=== PATIENT | female | born 1940 | race Caucasian/White ===

== ENCOUNTER 2020-11-03 08:38 | Inpatient (IN) ==
--- NOTE | 2020-11-03 09:06 | ERNOTE ---
Medical Problem HPI - Narrative Date of Service: 11/03/20 - General Chief Complaint: General Assessment Time Seen by Provider: 11/03/20 08:48 Source: patient, EMS, halfway records Exam Limitations: no limitations - Immun/Allergies/Home Medications Immunizations: IMMUNIZATION HX Immunizations Up to Date Yes Immunizations Comment covid vaccination 10/14/20 History of Influenza Vaccine Yes Hx Pneumococcal Vaccination Yes Allergies/Adverse Reactions: Allergies No Known Drug Allergies Allergy (Verified 11/03/20 08:52) venom-wasp Adverse Reaction (Unknown, Verified 11/03/20 08:52) Swelling (Other) Home Medications: HOME MEDICATIONS Carbamazepine [Carbatrol] 200 mg PO TID #0 10/21/12 [Last Taken Unknown] aspirin 81 mg tablet,delayed release 81 mg PO DAILY 05/09/18 [Last Taken Unknown] benazepril 20 mg tablet 20 mg PO BID 05/09/18 [Last Taken Unknown] glipizide 5 mg tablet, extended release 24 hr 2.5 mg PO DAILY tab 05/09/18 [L ast Taken Unknown] levothyroxine 112 mcg capsule 112 mcg PO DAILY 05/09/18 [Last Taken Unknown] acetaminophen 325 mg tablet 650 mg PO Q4H PRN 05/18/18 [Last Taken Unknown] furosemide 40 mg tablet 40 mg PO DAILY 05/18/18 [Last Taken Unknown] menthol 4 % topical gel 4 % TP QID PRN ml 07/18/18 [Last Taken Unknown] ferrous sulfate 325 mg (65 mg iron) tablet 325 mg PO DAILY tab 11/18/18 [Last Taken Unknown] ciprofloxacin HCl 250 mg tablet 250 mg PO BID #20 tab 11/01/20 [Last Taken Unknown] - History of Present History Narrative: Patient sent from [facility] dementia unit, assisted living for confusion, shortness of breath. EMS reports that she was requiring 3 L by nasal cannula to keep her oxygen saturation up. She is afebrile. She has no complaints here. Lower extremity swelling is noted. She is taken down on O2 to room air and desats quickly to 88%, maintains oxygen saturation at 94% on 2 L upon arriving to the ER. She does answer questions appropriately. She is alert to person, place and time except year. Review of Systems - Review of Systems Constitutional: Present: no symptoms reported Respiratory: Present: no symptoms reported Cardiology: Present: no symptoms reported Gastrointestinal/Abdominal: Present: no symptoms reported Medical History (Last Reviewed 11/03/20 @ 09:03 by Angela Payne MD) Alzheimer's disease with late onset Cataract Cervicalgia Depression Onset Date: Unknown Diabetes mellitus type 2, noninsulin dependent Onset Date: Unknown GERD (gastroesophageal reflux disease) Onset Date: Unknown Hyperlipidemia Onset Date: Unknown Hypertension Onset Date: Unknown Hypothyroidism (acquired) Onset Date: Unknown Osteoporosis Onset Date: Unknown Venous insufficiency Onset Date: ~2012 Family history of brain aneurysm Onset Date: Unknown Trigeminal neuralgia Onset Date: ~2012 Surgical History: Surgical History (Last Reviewed 11/03/20 @ 09:03 by Angela Payne MD) Esophageal dilatation Onset Date: ~2007 History of appendectomy Onset Date: Unknown History of cataract surgery Onset Date: Unknown bilateral History of cholecystectomy Onset Date: ~1967 History of colonoscopy Onset Date: ~2005 Dr Hernandez History of dilation and curettage Onset Date: ~1973 History of esophagogastroduodenoscopy Onset Date: ~[address] Hernandez chronic esophagitis, 2007 reflux esophagitis History of foot surgery Onset Date: ~2010 Dr Castelan 5th metatarsal History of hemorrhoidectomy Onset Date: ~1988 History of tonsillectomy Onset Date: ~1956 Family History: Family History (Last Reviewed 11/03/20 @ 09:03 by Angela Payne MD) Father , age 68 Unknown family medical history Mother , age 60 Cancer Social History: (Last Reviewed 11/03/20 @ 09:03 by Angela Payne MD) Social History: halfway: Yes Marital status: / current occupational status: retired Service: No Tobacco: Smoking Status: Former smoker Alcohol: alcohol intake: current alcohol intake frequency: a few times a month Substance Use: substance use type: does not use Dietary Habits: caffeine: Yes Aileen/Restoration: aileen/yarsanism: Pentecostalism Physical Exam - Physical Exam General Appearance: Present: wd/wn, alert, no apparent distress Head Exam: Present: normal inspection Eye Exam: Normal inspection: bilateral, PERRL: bilateral Ears, Nose, Throat: Present: normal ENT inspection Neck: Present: normal inspection, supple Respiratory: Present: no respiratory distress, lungs clear - Oxygen saturation is 95% on 2 L by nasal cannula, no rhonchi, no wheezing noted. Cardiovascular/Chest: Present: regular rate, rhythm Gastrointestinal/Abdominal: Present: normal bowel sounds, other - Mild tenderness noted to palpation, no rebound guarding or signs of peritonitis. Extremity Exam: Present: other - 3+ edema noted bilaterally Skin Exam: Present: normal color, warm/dry Progress - Results and Orders Patient's Lab Results:: I have reviewed the patient's lab results. Results and Orders: Laboratory Tests 11/03/20 11/03/20 11/03/20 08:10 08:10 08:10 WBC 2.9 L Hgb 11.9 L Hct 37.2 Plt Count 99 L Plasma Sodium 141 Potassium 3.9 Chloride 106 BUN 42 H Creatinine 1.70 H Lactic Acid, Venous 1.1 Calcium 8.2 AST 38 ALT 25 Alkaline Phosphatase 100 Troponin I Less than 0.017 B-Natriuretic Peptide 128 Albumin 3.3 L Procalcitonin Urine Glucose (UA) Urine Ketones Urine Blood Urine Nitrate Urine Bilirubin Urine Urobilinogen Ur Leukocyte Esterase Urine RBC Urine WBC Ur Epithelial Cells Influenza Type A Ag Influenza Type B Ag 11/03/20 11/03/20 11/03/20 08:10 08:52 09:15 WBC Hgb Hct Plt Count Plasma Sodium Potassium Chloride BUN Creatinine Lactic Acid, Venous Calcium AST ALT Alkaline Phosphatase Troponin I B-Natriuretic Peptide Albumin Procalcitonin Less than 0.05 L Urine Glucose (UA) Negative Urine Ketones 5 Urine Blood Negative Urine Nitrate Negative Urine Bilirubin 1 H Urine Urobilinogen Normal Ur Leukocyte Esterase Negative Urine RBC None seen Urine WBC 0-5 Ur Epithelial Cells 0-5 Influenza Type A Ag Negative Influenza Type B Ag Negative covid is positive - Vital Signs Patient's Vital Signs:: I have reviewed the patient's vital signs. Vital Signs: Vital Signs 11/03/20 08:45 Temperature 36.9 C Pulse Rate 66 Respiratory Rate 18 Blood Pressure 148/52 O2 Sat by Pulse Oximetry 94 - EKG EKG #1 EKG: NSR EKG read: Interp. by me EKG Comments: Patient's EKG shows normal sinus rhythm, no acute changes, ventricular rate is 64. - X-Ray X-Ray #1 X-Ray: chest Interpretation: Interp. by me X-ray Comments: Chest x-ray shows multifocal bilateral pneumonia. Suspect for Covid. Findings: Bilateral multifocal patchy airspace consolidation which is mostly involving the right upper lung zone and the left retrocardiac lung base. Findings consistent with multifocal pneumonia, correlate with Covid status. Cardiac silhouette and pulmonary vasculature are normal. The osseous structures demonstrate degenerative changes of the spine and shoulders. IMPRESSION: BILATERAL MULTIFOCAL PNEUMONIA. CORRELATE WITH COVID STATUS. - Progress/Reassessment Chief Complaint: General Assessment Progress:: Improved Progress Note-Subjective: 11/03/20 10:48 Patient's chest x-ray is suggestive of Covid infection, her labs are essentially normal. White blood cell count is slightly low. She remained stable while here, blood pressure 112/64, O2 sat is 93% on 2 L, heart rate is 60. She is resting comfortably, no complaints. 11/03/20 10:53 Covid test is positive. Discussed the case with hospitalist, Dr. Smith who accepts the patient in admission. Patient stable. She is transferred upstairs for care of her hypoxic Covid. Departure Clinical Impression: Hypoxia - Departure Disposition: Still a patient Condition: Good Referrals: Karlene Paez MD [Primary Care Provider] -
[2020-11-03 09:11] LABS: Urine Appearance Slightly Cloudy (CLEAR); Urine Color Dark Yellow
[2020-11-03 09:12] LABS: Urine Bilirubin 1 mg/dl (NEGATIVE); Urine Blood Negative /ul (NEGATIVE); Urine Ketone 5 mg/dL (NEGATIVE); Urine Protein 15 mg/dL (NEGATIVE); Urine Specific Gravity 1.025 SP.GR. (1.005-1.010); Urine Urobilinogen Normal (NORMAL); Urine pH 5.5 pH (5.0-7.0)
[2020-11-03 09:13] LABS: Urine Bacteria None Seen; Urine Hyaline Cast 0-5 /LPF; Urine Nitrite Negative (NEGATIVE); Urine RBC None Seen /hpf (0-5); Urine WBC 0-5 /hpf (0-5)
[2020-11-03 09:19] LABS: Hematocrit 37.2 % (37.0-47.0); Hemoglobin 11.9 gm/dL (12.5-16.0); Mean Cell Volume 102.8 fl (78-100); Mean Corpuscular Hemoglobin 32.9 pg (27-31); Mean Platelet Volume 10.3 fl (8-12.5); Neutrophil # 2.1 K/mm3 (1.3-6.0); Neutrophil % 73.9 % (42-75.0); Platelet Count 99 K/mm3 (150-450); Red Blood Count 3.62 M/mm3 (4.2-5.4); Red Cell Distribution Width 12.7 % (11.5-14.0); White Blood Count 2.9 K/mm3 (4.0-10.5)
[2020-11-03 09:40] LABS: Troponin I Less than 0.017 ng/mL (0.00-0.10)
[2020-11-03 09:41] LABS: ALT 25 U/L (19-67); AST 38 U/L (0-48); Albumin * 3.3 gm/dl (3.4-5.0); Alkaline Phosphatase * 100 U/L (50-170); Anion Gap 13.2 mmol/L (6.8-13.8); BNP * 128 pg/mL (5-550); BUN/Creatinine Ratio 24.7 (9.0-21.6); Bilirubin, Total 0.4 mg/dL (0.0-1.1); Blood Urea Nitrogen 42 mg/dL (3-23); Ca. Corrected For Albumin 8.4 mg/dL (8.4-10.2); Calcium * 8.2 mg/dL (7.9-10.9); Carbon Dioxide 25.7 mmol/L (24-32.6); Chloride 106 mmol/L (97-106); Glucose * 79 mg/dL (70-110); Potassium 3.9 mmol/L (3.4-4.6); Sodium 141 mmol/L (132-142); Total Protein 7.2 gm/dL (6.2-8.2)
[2020-11-03] MEDS ORDERED: NORMAL SALINE 1,000 ML IV ONE (10:55)
[2020-11-03] MEDS ORDERED: MENTHOL 4% TP PRN (13:53)
[2020-11-03] MEDS ORDERED: AZITHROMYCIN 250 MG TABLET PO ONE (13:58)
[2020-11-03] MEDS ORDERED: FUROSEMIDE 10 MG/ML VIAL IV ONE (13:58)
--- NOTE | 2020-11-03 14:02 | HP ---
Chief Complaint - Chief Complaint Date of Service: 11/03/20 Time of Service: 14:01 Chief Complaint: Hypoxia History of Present Illness: Rachael is an 80 yo female, a resident of the dementia unit at [facility]. She was sent from [facility] due to increased confusion and shortness of breath. EMS had placed her on 3lpm of oxygen due to dropping sats to 84%. She was able to be weaned down to 2lpm in the ER to keep sats above 90%. She is a poor historian due to the dementia. She does not know why she is here or where she is at. She has no focal complaints. Medical History (Last Reviewed 11/03/20 @ 09:03 by Angela Payne MD) Alzheimer's disease with late onset Cataract Cervicalgia Depression Onset Date: Unknown Diabetes mellitus type 2, noninsulin dependent Onset Date: Unknown GERD (gastroesophageal reflux disease) Onset Date: Unknown Hyperlipidemia Onset Date: Unknown Hypertension Onset Date: Unknown Hypothyroidism (acquired) Onset Date: Unknown Osteoporosis Onset Date: Unknown Venous insufficiency Onset Date: ~2012 Family history of brain aneurysm Onset Date: Unknown Trigeminal neuralgia Onset Date: ~2012 Surgical History: Surgical History (Last Reviewed 11/03/20 @ 09:03 by Angela Payne MD) Esophageal dilatation Onset Date: ~2007 History of appendectomy Onset Date: Unknown History of cataract surgery Onset Date: Unknown bilateral History of cholecystectomy Onset Date: ~1967 History of colonoscopy Onset Date: ~2005 Dr Hernandez History of dilation and curettage Onset Date: ~1973 History of esophagogastroduodenoscopy Onset Date: ~[address] Hernandez chronic esophagitis, 2007 reflux esophagitis History of foot surgery Onset Date: ~2010 Dr Castelan 5th metatarsal History of hemorrhoidectomy Onset Date: ~1988 History of tonsillectomy Onset Date: ~1956 Family History: Family History (Last Reviewed 11/03/20 @ 09:03 by Angela Payne MD) Father , age 68 Unknown family medical history Mother , age 60 Cancer Social History: (Last Reviewed 11/03/20 @ 09:03 by Angela Payne MD) Social History: [place] [facility] Yes Marital status: / current occupational status: retired Service: No Tobacco: Smoking Status: Former smoker Alcohol: alcohol intake: current alcohol intake frequency: a few times a month Substance Use: substance use type: does not use Dietary Habits: caffeine: Yes Aileen/Congregational: aileen/tenriism: Mu-Ism Review Of Systems (GEN) - Review of Systems Additional Comments: Unable to do ROS due to patient condition Immunizations: IMMUNIZATION HX Immunizations Up to Date Yes Immunizations Comment covid vaccination 10/14/20 History of Influenza Vaccine Yes Hx Pneumococcal Vaccination Yes Allergies/Adverse Reactions: Allergies Allergy/AdvReac Type Severity Reaction Status Date / Time No Known Drug Allergies Allergy Verified 11/03/20 08:52 venom-wasp AdvReac Unknown Swelling Verified 11/03/20 08:52 (Other) Home Medications: HOME MEDICATIONS Carbamazepine [Carbatrol] 200 mg PO TID #0 10/21/12 [Last Taken 11/03/20 08:00] aspirin 81 mg tablet,delayed release 81 mg PO DAILY 05/09/18 [Last Taken 11/03/20 08:00] benazepril 20 mg tablet 20 mg PO BID 05/09/18 [Last Taken 11/03/20 08:00] glipizide 5 mg tablet, extended release 24 hr 2.5 mg PO DAILY tab 05/09/18 [Last Taken 11/03/20 08:00] levothyroxine 112 mcg capsule 112 mcg PO DAILY 05/09/18 [Last Taken 11/03/20 08:00] acetaminophen 325 mg tablet 650 mg PO Q4H PRN 05/18/18 [Last Taken Unknown] furosemide 40 mg tablet 40 mg PO DAILY 05/18/18 [Last Taken 11/03/20 08:00] menthol 4 % topical gel 4 % TP QID PRN ml 07/18/18 [Last Taken Unknown] ferrous sulfate 325 mg (65 mg iron) tablet 325 mg PO DAILY tab 11/18/18 [Last Taken 11/03/20 08:00] ciprofloxacin HCl 250 mg tablet 250 mg PO BID #20 tab 11/01/20 [Last Taken 11/03/20 08:00] Exam - Exam Vital Signs: Vital Signs - Last Taken Temp 36.8 C 11/03/20 11:50 Pulse 73 11/03/20 11:50 Resp 16 11/03/20 11:50 BP 151/59 H 11/03/20 11:50 Pulse Ox 93 11/03/20 11:50 Constitutional: Present: Alert, No distress. Absent: Oriented x3 ENT Exam: Present: hearing grossly normal Eye Exam: bilateral eye: normal inspection Respiratory: Present: crackles Cardiovascular/Chest: Present: regular rate, rhythm, no murmur, edema Peripheral Pulses: radial (R): 2+, radial (L): 2+ Abdomen: Present: Normal bowel sounds, soft, nontender, nondistended Extremity: Present: lower extremity edema - 1+ Skin Exam: Present: normal color, warm/dry, no cyanosis Eye contact: Present: cooperative, good eye contact, normal speech Diagnostic Studies: Abnormal Lab Results 11/03/20 11/03/20 11/03/20 Range/Units 08:10 08:10 08:10 WBC 2.9 L (4.0-10.5) K/mm3 RBC 3.62 L (4.2-5.4) M/mm3 Hgb 11.9 L (12.5-16.0) gm/dL MCV 102.8 H (78-100) fl MCH 32.9 H (27-31) pg Plt Count 99 L (150-450) K/mm3 Lymphocytes % 9.4 L (20-51) % Monocytes % 16.1 H (0.0-9) % Lymphocytes # 0.27 L (1.5-3.5) k/mm3 BUN 42 H (3-23) mg/dL Creatinine 1.70 H (0.4-1.4) mg/dL Est GFR (Non-Af Amer) 31 L (60-130) mL/min BUN/Creatinine Ratio 24.7 H (9.0-21.6) Albumin 3.3 L (3.4-5.0) gm/dl Procalcitonin Less than 0.05 L (0.05-0.50) ng/mL Urine Protein (NEGATIVE) mg/dL Urine Bilirubin (NEGATIVE) mg/dl Hyaline Casts (NONE) /LPF SARS-CoV-2 (PCR) (NotDetected) 11/03/20 11/03/20 Range/Units 08:52 09:36 WBC (4.0-10.5) K/mm3 RBC (4.2-5.4) M/mm3 Hgb (12.5-16.0) gm/dL MCV (78-100) fl MCH (27-31) pg Plt Count (150-450) K/mm3 Lymphocytes % (20-51) % Monocytes % (0.0-9) % Lymphocytes # (1.5-3.5) k/mm3 BUN (3-23) mg/dL Creatinine (0.4-1.4) mg/dL Est GFR (Non-Af Amer) (60-130) mL/min BUN/Creatinine Ratio (9.0-21.6) Albumin (3.4-5.0) gm/dl Procalcitonin (0.05-0.50) ng/mL Urine Protein 15 H (NEGATIVE) mg/dL Urine Bilirubin 1 H (NEGATIVE) mg/dl Hyaline Casts 0-5 H (NONE) /LPF SARS-CoV-2 (PCR) Detected H (NotDetected) Laboratory Results WBC 2.9 K/mm3 (4.0-10.5) L 11/03/20 08:10 RBC 3.62 M/mm3 (4.2-5.4) L 11/03/20 08:10 Hgb 11.9 gm/dL (12.5-16.0) L 11/03/20 08:10 Hct 37.2 % (37.0-47.0) 11/03/20 08:10 MCV 102.8 fl (78-100) H 11/03/20 08:10 MCH 32.9 pg (27-31) H 11/03/20 08:10 MCHC 32.0 g/dl (32-36) 11/03/20 08:10 RDW 12.7 % (11.5-14.0) 11/03/20 08:10 Plt Count 99 K/mm3 (150-450) L 11/03/20 08:10 MPV 10.3 fl (8-12.5) 11/03/20 08:10 Immature Gran % (Auto) 0.30 % (0.001-0.429) 11/03/20 08:10 Immature Gran # (Auto) 0.01 K/mm3 (0.000-0.0310) 11/03/20 08:10 Neutrophils % 73.9 % (42-75.0) 11/03/20 08:10 Lymphocytes % 9.4 % (20-51) L 11/03/20 08:10 Monocytes % 16.1 % (0.0-9) H 11/03/20 08:10 Eosinophils % 0.0 % (0.0-3.0) 11/03/20 08:10 Basophils % 0.3 % (0.0-1.0) 11/03/20 08:10 Nucleated RBC % 0.0 k/mm3 (0-1) 11/03/20 08:10 Neutrophils # 2.1 K/mm3 (1.3-6.0) 11/03/20 08:10 Lymphocytes # 0.27 k/mm3 (1.5-3.5) L 11/03/20 08:10 Monocytes # 0.5 k/mm3 (0.0-1.0) 11/03/20 08:10 Eosinophils # 0.0 k/mm3 (0.0-0.7) 11/03/20 08:10 Absolute Basophils 0.0 k/mm3 (0.0-0.1) 11/03/20 08:10 Sodium 141 mmol/L (132-142) 11/03/20 08:10 Plasma Sodium 141 mmol/L (130-142) 11/03/20 08:10 Potassium 3.9 mmol/L (3.4-4.6) 11/03/20 08:10 Chloride 106 mmol/L (97-106) 11/03/20 08:10 Carbon Dioxide 25.7 mmol/L (24-32.6) 11/03/20 08:10 Anion Gap 13.2 mmol/L (6.8-13.8) 11/03/20 08:10 BUN 42 mg/dL (3-23) H 11/03/20 08:10 Creatinine 1.70 mg/dL (0.4-1.4) H 11/03/20 08:10 Est GFR (Non-Af Amer) 31 mL/min (60-130) L 11/03/20 08:10 BUN/Creatinine Ratio 24.7 (9.0-21.6) H 11/03/20 08:10 Random Glucose 79 mg/dL (70-110) 11/03/20 08:10 Lactic Acid, Venous 1.1 mmol/L (0.4-2.0) 11/03/20 08:10 Calcium 8.2 mg/dL (7.9-10.9) 11/03/20 08:10 Calcium Adj for Albumin 8.4 mg/dL (8.4-10.2) 11/03/20 08:10 Total Bilirubin 0.4 mg/dL (0.0-1.1) 11/03/20 08:10 AST 38 U/L (0-48) 11/03/20 08:10 ALT 25 U/L (19-67) 11/03/20 08:10 Alkaline Phosphatase 100 U/L (50-170) 11/03/20 08:10 Troponin I Less than 0.017 ng/mL (0.00-0.10) 11/03/20 08:10 B-Natriuretic Peptide 128 pg/mL (5-550) 11/03/20 08:10 Total Protein 7.2 gm/dL (6.2-8.2) 11/03/20 08:10 Albumin 3.3 gm/dl (3.4-5.0) L 11/03/20 08:10 Procalcitonin Less than 0.05 ng/mL (0.05-0.50) L 11/03/20 08:10 Urine Color Dark yellow 11/03/20 08:52 Urine Appearance Slightly cloudy (CLEAR) 11/03/20 08:52 Urine pH 5.5 pH (5.0-7.0) 11/03/20 08:52 Ur Specific [place] 1.025 SP.GR. (1.005-1.010) 11/03/20 08:52 Urine Protein 15 mg/dL (NEGATIVE) H 11/03/20 08:52 Urine Glucose (UA) Negative mg/dL (NEGATIVE) 11/03/20 08:52 Urine Ketones 5 mg/dL (NEGATIVE) 11/03/20 08:52 Urine Blood Negative /ul (NEGATIVE) 11/03/20 08:52 Urine Nitrate Negative (NEGATIVE) 11/03/20 08:52 Urine Bilirubin 1 mg/dl (NEGATIVE) H 11/03/20 08:52 Urine Urobilinogen Normal EU/dl (NORMAL) 11/03/20 08:52 Ur Leukocyte Esterase Negative /ul (NEGATIVE) 11/03/20 08:52 Urine RBC None seen /hpf (0-5) 11/03/20 08:52 Urine WBC 0-5 /hpf (0-5) 11/03/20 08:52 Ur Epithelial Cells 0-5 /hpf (0-5) 11/03/20 08:52 Urine Bacteria None seen (NONE) 11/03/20 08:52 Hyaline Casts 0-5 /LPF (NONE) H 11/03/20 08:52 Urine Culture Comments Culture to follow 11/03/20 08:52 Influenza Type A Ag Negative (NEGATIVE) 11/03/20 09:15 Influenza Type B Ag Negative (NEGATIVE) 11/03/20 09:15 SARS-CoV-2 (PCR) Detected (NotDetected) H 11/03/20 09:36 Assessment/Plan - Narrative Narrative: Rachael is an 80 yo female with Acute respiratory failure secondary to COVID-19 pneumonia. She meets criteria for Veklury treatment. Will also treat with rocephin/azithromycin due to pneumonia potentially being bacterial and getting potential benefit from azithromycin and it's anti-inflammatory effect. I will hold off on starting dexamethasone as I am concerned it would exacerbate delirium and effect her treatment. If her respiratory status worsens, may have to start dexamethasone regardless. Will give supplemental oxygen and wean as able. - Assessment/Plan (1) Acute respiratory failure due to COVID-19 Problem: Acute (2) Pneumonia due to 2019 novel coronavirus Problem: Acute (3) Alzheimer's dementia Problem: Chronic (4) Diabetes mellitus, type II Problem: Chronic Qualifiers: Diabetes mellitus correction insulin use: without buttermaker continuous churn use Diabetes mellitus complication status: without complication Qualified Code(s): E11.9 - Type 2 diabetes mellitus without complications
[2020-11-03] MEDS: REMDESIVIR 200 MG in NORMAL SALINE 210 ML IV ONE ×2 (14:51→15:32)
[2020-11-03] MEDS: carBAMazepine 200 MG TABLET PO SCH ×2 (14:59→22:07)
[2020-11-03] MEDS: ENALAPRIL MALEATE 20 MG TABLET PO SCH (21:32)
[2020-11-04] MEDS: LEVOTHYROXINE SODIUM 112 MCG TABLET PO SCH (06:20)
[2020-11-04] MEDS: carBAMazepine 200 MG TABLET PO SCH ×3 (06:20→22:36)
[2020-11-04 06:50] LABS: Albumin * 3.2 gm/dl (3.4-5.0); Anion Gap 15.8 mmol/L (6.8-13.8); BUN/Creatinine Ratio 23.2 (9.0-21.6); Bilirubin, Total 0.4 mg/dL (0.0-1.1); Ca. Corrected For Albumin 8.2 mg/dL (8.4-10.2); Calcium * 7.9 mg/dL (7.9-10.9); Carbon Dioxide 24.8 mmol/L (24-32.6); Potassium 3.6 mmol/L (3.4-4.6); Total Protein 6.6 gm/dL (6.2-8.2)
[2020-11-04] MEDS: ASPIRIN 81 MG TABLET.DR PO SCH (08:14)
[2020-11-04] MEDS: AZITHROMYCIN 250 MG TABLET PO SCH (08:14)
[2020-11-04] MEDS: ENALAPRIL MALEATE 20 MG TABLET PO SCH ×2 (08:14→21:54)
[2020-11-04] MEDS: FERROUS SULFATE 325 MG TABLET PO SCH (08:14)
[2020-11-04] MEDS ORDERED: glipiZIDE 5 MG TABLET PO SCH (09:00)
[2020-11-04] MEDS: INSULIN LISPRO 100 UNITS/ML VIAL SC SCH ×2 (11:36→18:16)
[2020-11-04] MEDS: ENOXAPARIN SODIUM 30 MG/0.3 ML SYRG SC SCH (13:49)
[2020-11-04] MEDS: REMDESIVIR 100 MG in NORMAL SALINE 230 ML IV SCH (15:32)
--- NOTE | 2020-11-04 20:03 | PN ---
Subjective - Date and Time Seen Date: 11/04/20 Time: 09:30 Subjective Narrative: Rachael has no concerns, but remains confused. Suspect dementia but I do not know her baseline. Objective - Vitals Vitals: Last Vital Signs Temp 37.1 C 11/04/20 18:42 Pulse 67 11/04/20 18:42 Resp 16 11/04/20 18:42 BP 169/83 H 11/04/20 18:42 Pulse Ox 94 11/04/20 18:42 - Abnormal Lab Findings Abnormal Lab Findings: Abnormal Lab Results 11/04/20 Range/Units 06:15 Sodium 147 H (132-142) mmol/L Plasma Sodium 147 H (130-142) mmol/L Chloride 110 H (97-106) mmol/L Anion Gap 15.8 H (6.8-13.8) mmol/L BUN 35 H (3-23) mg/dL Creatinine 1.51 H (0.4-1.4) mg/dL Est GFR (Non-Af Amer) 35 L (60-130) mL/min BUN/Creatinine Ratio 23.2 H (9.0-21.6) Calcium Adj for Albumin 8.2 L (8.4-10.2) mg/dL AST 49 H (0-48) U/L Albumin 3.2 L (3.4-5.0) gm/dl - Exam Constitutional: Present: Alert, Cooperative. Absent: Oriented x3 ENT Exam: Present: hearing grossly normal Respiratory: Present: crackles Cardiovascular/Chest: Present: regular rate, rhythm. Absent: edema Abdomen: Present: Normal bowel sounds, soft, nontender, nondistended Skin Exam: Present: normal color, warm/dry, no cyanosis Eye contact: Present: good eye contact, normal speech Assessment/Plan Plan Narrative: Respiratory status is stable. Confusion vs dementia complicates her case. I am not familiar with her baseline making it harder to determine if this is worse than her usual. I am holding on dexamethasone at this time as I do not want to cause delirium and her respiratory status appears stable, however may need to add dexamethasone if worsening. Continue Veklury, azithromycin, rocephin. - Problems/Diagnosis (1) Acute respiratory failure due to COVID-19 Problem: Acute (2) Pneumonia due to 2019 novel coronavirus Problem: Acute (3) Alzheimer's dementia Problem: Chronic (4) Diabetes mellitus, type II Problem: Chronic Qualifiers: Diabetes mellitus care home insulin use: without buttermaker helper use Diabetes mellitus complication status: without complication Qualified Code(s): E11.9 - Type 2 diabetes mellitus without complications
[2020-11-04] MEDS ORDERED: hydrALAZINE HCL 20 MG/ML VIAL IV ONE (22:58)
[2020-11-05] MEDS: ACETAMINOPHEN 325 MG TABLET PO PRN ×3 (01:40→20:43)
[2020-11-05] MEDS: LEVOTHYROXINE SODIUM 112 MCG TABLET PO SCH (06:13)
[2020-11-05] MEDS: carBAMazepine 200 MG TABLET PO SCH ×3 (06:14→22:23)
[2020-11-05 06:36] LABS: Albumin * 2.9 gm/dl (3.4-5.0); Anion Gap 12.6 mmol/L (6.8-13.8); BUN/Creatinine Ratio 21.8 (9.0-21.6); Bilirubin, Total 0.4 mg/dL (0.0-1.1); Ca. Corrected For Albumin 8.7 mg/dL (8.4-10.2); Calcium * 8.1 mg/dL (7.9-10.9); Carbon Dioxide 27.1 mmol/L (24-32.6); Potassium 3.7 mmol/L (3.4-4.6); Total Protein 6.6 gm/dL (6.2-8.2)
[2020-11-05] MEDS: INSULIN LISPRO 100 UNITS/ML VIAL SC SCH ×3 (06:57→16:51)
[2020-11-05] MEDS: AZITHROMYCIN 250 MG TABLET PO SCH (08:34)
[2020-11-05] MEDS: ENALAPRIL MALEATE 20 MG TABLET PO SCH ×2 (08:34→20:43)
[2020-11-05] MEDS: glipiZIDE 2.5 MG TAB.SR.24H PO SCH (08:34)
[2020-11-05] MEDS: FERROUS SULFATE 325 MG TABLET PO SCH (08:34)
[2020-11-05] MEDS: ASPIRIN 81 MG TABLET.DR PO SCH (08:34)
[2020-11-05] MEDS: DEXAMETHASONE SODIUM PHOSP/PF 10 MG/ML VIAL IV SCH (08:35)
[2020-11-05] MEDS: ENOXAPARIN SODIUM 30 MG/0.3 ML SYRG SC SCH (13:08)
[2020-11-05] MEDS: REMDESIVIR 100 MG in NORMAL SALINE 230 ML IV SCH (15:35)
--- NOTE | 2020-11-05 23:56 | PN ---
Subjective - Date and Time Seen Date: 11/05/20 Time: 12:15 Subjective Narrative: Rachael reports feeling better. She appears less confused than yesterday. She denies shortness of breath, fever, chills, nausea, or vomiting. Objective - Vitals Vitals: Last Vital Signs Temp 36.4 C 11/05/20 21:00 Pulse 78 11/05/20 21:00 Resp 17 11/05/20 21:00 BP 135/76 11/05/20 21:00 Pulse Ox 100 11/05/20 21:00 - Abnormal Lab Findings Abnormal Lab Findings: Abnormal Lab Results 11/05/20 Range/Units 06:10 Sodium 149 H (132-142) mmol/L Plasma Sodium 149 H (130-142) mmol/L Chloride 113 H (97-106) mmol/L BUN 29 H (3-23) mg/dL Est GFR (Non-Af Amer) 41 L (60-130) mL/min BUN/Creatinine Ratio 21.8 H (9.0-21.6) AST 59 H (0-48) U/L Albumin 2.9 L (3.4-5.0) gm/dl - Exam Constitutional: Present: Alert, No distress. Absent: Oriented x3 ENT Exam: Present: hearing grossly normal Respiratory: Present: crackles Cardiovascular/Chest: Present: regular rate, rhythm Abdomen: Present: Normal bowel sounds, soft, nontender, nondistended Skin Exam: Present: normal color, warm/dry, no cyanosis Assessment/Plan Plan Narrative: She appears less confused today. Her oxygen requirements have been up to 4lpm and due to an increase over yesterday I elected to start dexamethasone despite the potential that it could worsen her dementia. Continue Veklury, rocephin, azithromycin. Attempt to wean off oxygen as able. 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
[2020-11-06] MEDS ORDERED: FUROSEMIDE 10 MG/ML VIAL IV ONE (00:13)
[2020-11-06] MEDS: LORazepam 2 MG/ML DISP.SYRIN IV PRN ×4 (04:00→21:34)
[2020-11-06 06:56] LABS: Albumin * 3.1 gm/dl (3.4-5.0); Anion Gap 15.8 mmol/L (6.8-13.8); BUN/Creatinine Ratio 22.8 (9.0-21.6); Bilirubin, Total 0.4 mg/dL (0.0-1.1); Ca. Corrected For Albumin 8.9 mg/dL (8.4-10.2); Calcium * 8.5 mg/dL (7.9-10.9); Carbon Dioxide 27.7 mmol/L (24-32.6); Potassium 3.5 mmol/L (3.4-4.6); Total Protein 7.2 gm/dL (6.2-8.2)
[2020-11-06] MEDS: INSULIN LISPRO 100 UNITS/ML VIAL SC SCH ×3 (07:38→16:19)
[2020-11-06] MEDS: ASPIRIN 81 MG TABLET.DR PO SCH (08:47)
[2020-11-06] MEDS: AZITHROMYCIN 250 MG TABLET PO SCH (08:47)
[2020-11-06] MEDS: LEVOTHYROXINE SODIUM 112 MCG TABLET PO SCH (08:47)
[2020-11-06] MEDS: carBAMazepine 200 MG TABLET PO SCH ×3 (08:48→22:23)
[2020-11-06] MEDS: glipiZIDE 2.5 MG TAB.SR.24H PO SCH (08:48)
[2020-11-06] MEDS: FERROUS SULFATE 325 MG TABLET PO SCH (08:48)
[2020-11-06] MEDS: DEXAMETHASONE SODIUM PHOSP/PF 10 MG/ML VIAL IV SCH (08:49)
[2020-11-06] MEDS: ENALAPRIL MALEATE 20 MG TABLET PO SCH ×2 (08:49→21:35)
[2020-11-06] MEDS: ENOXAPARIN SODIUM 30 MG/0.3 ML SYRG SC SCH (12:47)
[2020-11-06] MEDS: REMDESIVIR 100 MG in NORMAL SALINE 230 ML IV SCH (14:57)
[2020-11-06] MEDS: ACETAMINOPHEN 325 MG TABLET PO PRN (15:45)
--- NOTE | 2020-11-06 23:45 | PN ---
Subjective - Date and Time Seen Date: 11/06/20 Time: 09:00 Subjective Narrative: Rachael is resting on CPAP currently. She worsened overnight and went from 3lpm via NC to 15lpm to then CPAP. Blood gasses were drawn which showed primary hypoxia. Objective - Vitals Vitals: Last Vital Signs Temp 36.8 C 11/06/20 22:16 Pulse 69 11/06/20 22:44 Resp 14 11/06/20 22:44 BP 145/74 11/06/20 22:16 Pulse Ox 90 L 11/06/20 22:46 - Abnormal Lab Findings Abnormal Lab Findings: Abnormal Lab Results 11/06/20 11/06/20 Range/Units 04:10 06:29 pO2 42.6 L (83.0-108.0) mmHg Total CO2 24.7 H (19.0-24.0) mmol/L ABG O2 Sat (Measured) 79.6 L (94.0-98.0) % Sodium 150 H (132-142) mmol/L Plasma Sodium 150 H (130-142) mmol/L Chloride 110 H (97-106) mmol/L Anion Gap 15.8 H (6.8-13.8) mmol/L BUN 34 H (3-23) mg/dL Creatinine 1.49 H (0.4-1.4) mg/dL Est GFR (Non-Af Amer) 36 L (60-130) mL/min BUN/Creatinine Ratio 22.8 H (9.0-21.6) Random Glucose 114 H (70-110) mg/dL AST 67 H (0-48) U/L Albumin 3.1 L (3.4-5.0) gm/dl - Exam Constitutional: Present: Somnolent Respiratory: Present: decreased breath sounds Cardiovascular/Chest: Present: regular rate, rhythm, no edema, no murmur Abdomen: Present: Normal bowel sounds, soft, nontender, nondistended Skin Exam: Present: normal color, warm/dry, no cyanosis Cauti Physician Documentation - Urinary Catheter Management Urethral (Felipe) Date of Insertion: 11/06/20 Time of Insertion: 09:30 Assessment/Plan Plan Narrative: Respiratory status worsening, on CPAP. Currently on our maximal therapy with rocephin, azithromycin, dexamethasone, and Veklury. Continue to use CPAP will attempt to wean as able. CPAP or BIPAP will be are maximum therapy as she is DNR. - Problems/Diagnosis (1) Acute respiratory failure due to COVID-19 Problem: Acute (2) Pneumonia due to 2019 novel coronavirus Problem: Acute (3) Alzheimer's dementia Problem: Chronic (4) Diabetes mellitus, type II Problem: Chronic Qualifiers: Diabetes mellitus meterman insulin use: without prison use Diabetes mellitus complication status: without complication Qualified Code(s): E11.9 - Type 2 diabetes mellitus without complications
[2020-11-07] MEDS ORDERED: MORPHINE SULFATE 2 MG/ML DISP.SYRIN ONE (00:24)
[2020-11-07] MEDS: MORPHINE SULFATE 2 MG/ML DISP.SYRIN IV PRN ×5 (00:25→22:52)
[2020-11-07] MEDS: LORazepam 2 MG/ML DISP.SYRIN IV PRN (02:21)
[2020-11-07 06:41] LABS: Albumin * 3.1 gm/dl (3.4-5.0); Anion Gap 14.9 mmol/L (6.8-13.8); BUN/Creatinine Ratio 24.8 (9.0-21.6); Bilirubin, Total 0.5 mg/dL (0.0-1.1); Ca. Corrected For Albumin 9.2 mg/dL (8.4-10.2); Calcium * 8.8 mg/dL (7.9-10.9); Carbon Dioxide 28.1 mmol/L (24-32.6); Total Protein 7.4 gm/dL (6.2-8.2)
[2020-11-07] MEDS: INSULIN LISPRO 100 UNITS/ML VIAL SC SCH ×3 (07:18→16:54)
[2020-11-07] MEDS: FERROUS SULFATE 325 MG TABLET PO SCH (08:37)
[2020-11-07] MEDS: 0.5 NORMAL SALINE 1,000 ML IV PRN (08:37)
[2020-11-07] MEDS: ENALAPRIL MALEATE 20 MG TABLET PO SCH ×2 (08:37→21:31)
[2020-11-07] MEDS: carBAMazepine 200 MG TABLET PO SCH ×2 (08:37→16:18)
[2020-11-07] MEDS: ASPIRIN 81 MG TABLET.DR PO SCH (08:38)
[2020-11-07] MEDS: DEXAMETHASONE SODIUM PHOSP/PF 10 MG/ML VIAL IV SCH (08:38)
[2020-11-07] MEDS: LEVOTHYROXINE SODIUM 112 MCG TABLET PO SCH (08:38)
[2020-11-07] MEDS: glipiZIDE 2.5 MG TAB.SR.24H PO SCH (08:38)
[2020-11-07] MEDS: AZITHROMYCIN 250 MG TABLET PO SCH (08:38)
[2020-11-07 08:40] LABS: Hemoglobin 13.5 gm/dL (12.5-16.0); Mean Cell Volume 101.7 fl (78-100); Mean Corpuscular Hemoglobin 32.7 pg (27-31); Mean Corpuscular Hgb Conc 32.1 g/dl (32-36); Mean Platelet Volume 11.8 fl (8-12.5); Neutrophil # 7.2 K/mm3 (1.3-6.0); Neutrophil % 80.9 % (42-75.0); Platelet Count 152 K/mm3 (150-450); Red Blood Count 4.13 M/mm3 (4.2-5.4); Red Cell Distribution Width 12.7 % (11.5-14.0); White Blood Count 8.8 K/mm3 (4.0-10.5)
[2020-11-07] MEDS: ENOXAPARIN SODIUM 30 MG/0.3 ML SYRG SC SCH (12:00)
--- NOTE | 2020-11-07 16:36 | ANES ---
Anesthesia Procedure Note Procedure Note: ANESTHESIA PROCEDURE NOTE Date of Procedure: 11/07/2020 Time of procedure: 1605. Performed by: CODY uBckner CRNA, MSN Preprocedure diagnosis: Respiratory distress, Covid positive, lack of venous access. Post procedure diagnosis: Same. Procedure: Venipuncture for IV access. Indications: Respiratory distress, lack of venous access. Findings: I was called to SCU 1 for a Covid positive patient who is receiving fluids and remdesivir. There have been multiple attempts to establish an IV and I was requested to establish one if possible. Details of the procedure: The patient was prepped with Betadine and alcohol, 0.1 mL of 1% lidocaine solution was injected at the intended IV site. A number 22- gauge IV was started in the right hand, flushed and secured. EBL: Minimal. Fluids: N/A. Specimen: N/A. Post procedure condition: The patient tolerated the procedure well. No complic ations were noted. Thank you for this consultation. Margarito Tirado CRNA, CODY, MSN
[2020-11-07] MEDS: REMDESIVIR 100 MG in NORMAL SALINE 230 ML IV SCH (16:41)
--- NOTE | 2020-11-07 22:53 | PN ---
Subjective - Date and Time Seen Date: 11/07/20 Time: 09:00 Subjective Narrative: Rachael stirs with stimulation, but does not converse. Wearing CPAP. She groans and grimaces with movement. Objective - Vitals Vitals: Last Vital Signs Temp 37.2 C 11/07/20 18:11 Pulse 92 11/07/20 21:31 Resp 27 H 11/07/20 21:00 BP 129/82 11/07/20 21:31 Pulse Ox 92 L 11/07/20 21:00 - Abnormal Lab Findings Abnormal Lab Findings: Abnormal Lab Results 11/07/20 11/07/20 Range/Units 06:00 06:25 RBC 4.13 L (4.2-5.4) M/mm3 MCV 101.7 H (78-100) fl MCH 32.7 H (27-31) pg Immature Gran % (Auto) 0.50 H (0.001-0.429) % Immature Gran # (Auto) 0.04 H (0.000-0.0310) K/mm3 Neutrophils % 80.9 H (42-75.0) % Lymphocytes % 7.1 L (20-51) % Monocytes % 11.3 H (0.0-9) % Neutrophils # 7.2 H (1.3-6.0) K/mm3 Lymphocytes # 0.63 L (1.5-3.5) k/mm3 Sodium 154 H (132-142) mmol/L Plasma Sodium 154 H (130-142) mmol/L Chloride 115 H (97-106) mmol/L Anion Gap 14.9 H (6.8-13.8) mmol/L BUN 36 H (3-23) mg/dL Creatinine 1.45 H (0.4-1.4) mg/dL Est GFR (Non-Af Amer) 37 L (60-130) mL/min BUN/Creatinine Ratio 24.8 H (9.0-21.6) AST 62 H (0-48) U/L Albumin 3.1 L (3.4-5.0) gm/dl - Exam Constitutional: Present: Obtunded Respiratory: Present: decreased breath sounds - but air movement does sound better today than yesterday Cardiovascular/Chest: Present: regular rate, rhythm, no edema Abdomen: Present: Normal bowel sounds, soft, nontender, nondistended Skin Exam: Present: normal color, warm/dry, no cyanosis Cauti Physician Documentation - Urinary Catheter Management Urethral (Felipe) Date of Insertion: 11/06/20 Time of Insertion: 09:30 Assessment/Plan Plan Narrative: 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 Responsiveness is less today. Continuing to require CPAP almost continuously. Not able to take pills or eat. Starting fluids today due to rising sodium from not drinking. Will use half NS, if not improving may need free water. Showing signs of discomfort will use morphine to help with pain control and dyspnea. Discussed with family who agree with comfort measures and if she does not appear to be improving clinically would agree with comfort care only and hospice. Will continue current treatments and see if she shows signs of improvement. But if there are no signs of improvement may consider comfort care only. - Problems/Diagnosis (1) Acute respiratory failure due to COVID-19 Problem: Acute (2) Pneumonia due to 2019 novel coronavirus Problem: Acute (3) Hypernatremia Problem: Acute (4) Alzheimer's dementia Problem: Chronic (5) Diabetes mellitus, type II Problem: Chronic Qualifiers: Diabetes mellitus snf insulin use: without snf use Diabetes mellitus complication status: without complication Qualified Code(s): E11.9 - Type 2 diabetes mellitus without complications
[2020-11-08] MEDS: carBAMazepine 200 MG TABLET PO SCH ×3 (00:13→16:28)
[2020-11-08] MEDS: LORazepam 2 MG/ML DISP.SYRIN IV PRN ×3 (01:08→11:34)
[2020-11-08] MEDS: 0.5 NORMAL SALINE 1,000 ML IV PRN ×2 (01:50→08:56)
[2020-11-08 06:47] LABS: Albumin * 2.5 gm/dl (3.4-5.0); Anion Gap 13.5 mmol/L (6.8-13.8); BUN/Creatinine Ratio 24.8 (9.0-21.6); Bilirubin, Total 0.5 mg/dL (0.0-1.1); Ca. Corrected For Albumin 9.3 mg/dL (8.4-10.2); Calcium * 8.4 mg/dL (7.9-10.9); Carbon Dioxide 27.4 mmol/L (24-32.6); Potassium 3.9 mmol/L (3.4-4.6); Total Protein 6.5 gm/dL (6.2-8.2)
[2020-11-08] MEDS: INSULIN LISPRO 100 UNITS/ML VIAL SC SCH ×3 (07:04→16:28)
[2020-11-08] MEDS: DEXAMETHASONE SODIUM PHOSP/PF 10 MG/ML VIAL IV SCH (08:50)
[2020-11-08] MEDS: glipiZIDE 2.5 MG TAB.SR.24H PO SCH (08:50)
[2020-11-08] MEDS: ENALAPRIL MALEATE 20 MG TABLET PO SCH ×2 (08:50→20:59)
[2020-11-08] MEDS: FERROUS SULFATE 325 MG TABLET PO SCH (08:50)
[2020-11-08] MEDS: ASPIRIN 81 MG TABLET.DR PO SCH (08:50)
[2020-11-08] MEDS: LEVOTHYROXINE SODIUM 112 MCG TABLET PO SCH (08:50)
[2020-11-08] MEDS: MORPHINE SULFATE 2 MG/ML DISP.SYRIN IV PRN ×2 (08:53→10:53)
[2020-11-08 11:05] VITALS: BP 198/92
[2020-11-08] MEDS: ENOXAPARIN SODIUM 30 MG/0.3 ML SYRG SC SCH (11:42)
[2020-11-08] MEDS ORDERED: GLYCERIN/PROPYLENE GLYCOL 150 DROP BTL EACHEYE PRN (13:15)
[2020-11-08] MEDS ORDERED: ATROPINE SULFATE 50 DROP BTL SL PRN (13:15)
[2020-11-08] MEDS ORDERED: FUROSEMIDE 10 MG/ML VIAL IV ONE (13:20)
[2020-11-08] MEDS: MORPHINE SULFATE 4 MG/ML SYRG IV PRN ×4 (13:38→20:09)
--- NOTE | 2020-11-08 22:22 | DS ---
Discharge Summary - Provider Primary Care Provider: Karlene Paez Admitting Clinician: Erick Smith Attending Physician on Admission: Erick Smith - Date and Time Date of : 11/08/20 - Diagnosis/Cause of (1) Acute respiratory failure due to COVID-19 Problems: Acute (2) Pneumonia due to 2019 novel coronavirus Problems: Acute (3) Hypernatremia Problems: Acute (4) Alzheimer's dementia Problems: Chronic (5) Diabetes mellitus, type II Problems: Chronic - Summary Details (narrative): Rachael, an 80 yo female with alzheimer's dementia was admitted for Acute respiratory failure secondary to COVID19 pneumonia. She was treated with Veklury, dexamethasone, azithromycin, rocephin, and oxygen adjusted to keep oxygen saturation above 90%. This was gradually increased to higher flow over time due to increased demand until more positive pressure was required and she was placed on CPAP. Despite CPAP her oxygen requirements continued to worsen and FiO2 was gradually increased until it was 100% and pressures were then increased. With higher pressures her level of discomfort increased. I spoke with her niece, her medical POA, and explained her condition. We discussed her treatment and confort cares and she agreed to comfort cares measures. CPAP was discontinued and she was placed on oxymask and given IV morphine for discomfort and dyspnea. She was made comfortable and after several hours. Procedures Performed: none - Additional Data Family: contacted
== END 2020-11-08 22:45 | disposition expired | DRG 177 ==
LOC: ER 08:38 → SCU 11:02
PROVIDERS: ADMIT Family Medicine; ATTEND Family Medicine